=== PATIENT | male | born 1950 | race Caucasian/White ===

== ENCOUNTER → 2023-03-20 09:01 | Outpatient (REF) | payer MEDICARE, OTHER, SELFPAY | LOC: SDSPAT 09:01 | PROVIDERS: ATTENDING PHYSICIAN Surgery; FAMILY PHYSICIAN Physician Assistant Medical; OTHER PHYSICIAN Internal Medicine | DX: K60.2 Anal fissure, unspecified (principal) | CPT/HCPCS: 36415; 71046; 93005 ==

== ENCOUNTER 2023-07-04 11:13 | Emergency (ER) | payer MEDICARE, OTHER, SELFPAY ==
[2023-07-04 11:27] VITALS: BP 149/81
[2023-07-04 11:45] LABS: % Basophils 0.2 % (0-2); % Immature Granulocytes 0.4 % (0-0.5); % Lymphocytes 11.1 % (20.5-51.1); % Monocytes 9.4 % (1.7-9.3); % Neutrophils 78.9 % (42.2-75.2); Absolute Lymphocytes 0.9 10^3/uL (1.2-3.4); Absolute Monocytes 0.8 10^3/uL (0.1-0.6); Absolute Neutrophils 6.5 10^3/uL (1.4-6.5); Hematocrit 40.3 % (39.0-52.0); Hemoglobin 14.1 g/dL (13.0-18.0); Mean Corpuscular Hgb 31.3 pg (27.0-31.0); Mean Corpuscular Volume 89.4 fL (80.0-94.0); Mean Platelet Volume 9.9 fL (7.4-10.4); Nucleated Red Blood Cells % 0 % (-); Platelet Count 217 10^3/uL (130-400); Red Blood Cell Count 4.51 10^6/uL (4.70-6.10); Red Cell Dist. Width 12.5 % (11.5-14.5); White Blood Cell Count 8.2 10^3/uL (4.8-10.8)
[2023-07-04 11:59] LABS: D-Dimer 1.02 ug/mlFEU (0.00-0.50)
[2023-07-04 12:06] LABS: ALT (SGPT) 22 U/L (0-50); AST (SGOT) 27 U/L (17-59); Albumin 4.2 g/dl (3.5-5.0); Alkaline Phosphatase 74 U/L (38-126); Blood Urea Nitrogen 14 mg/dl (9-20); Carbon Dioxide 25 mmol/L (22-30); Chloride 102 mmol/L (98-107); Glucose 109 mg/dl (70-99); Potassium 3.9 mmol/L (3.5-5.1); Sodium 135 mmol/L (135-145); Total Bilirubin 0.8 mg/dl (0.2-1.3); Total Protein 6.8 g/dl (6.3-8.2); eGFR > 60.00
[2023-07-04 12:15] LABS: NT-proBNP 83.9 pg/ml; Troponin I 0.016 ng/ml
--- NOTE | 2023-07-04 14:30 | ED.GENMED ---
History of Present Illness
General
Chief Complaint: Abnormal Lab Value
Source: patient
Exam Limitations: none
Time Seen by Provider: 07/04/23 13:17
Travel History
Have you had any contact with someone who has COVID-19?: No
Do you have any symptoms of coronavirus? Fever > 100 degrees, chills, cough, shortness of breath, sore throat, loss of taste or smell, muscle aches, or headache?: No
History of Present Illness
History of Present Illness:
72-year-old male presents with months worth of stable shortness of breath with exertion. He initially saw the family doctor regarding this and was sent to pulmonology. Pulmonology did outpatient D-dimer which turned out to be elevated and was sent
here for further evaluation. At the moment at rest he has no shortness of breath. He denies chest pain. He denies a cough. He denies any significant leg swelling. No prior cardiac disease. No other complaints at this time
Past History
Past History
ED Past Medical History: HTN; Negative IDDM or NIDDM
ED Past Surgical History: Orthopedic (Left knee replacement) and Urological
Social History
Tobacco: Non-smoker
Alcohol: None
Drug: None
Personal:
Living: with family
Employment: Retired
Family History
Family History: Other (Noncontributory)
Phy Exam
Physical Exam
Physical Exam:
General: Well-appearing male no acute respiratory distress
HEENT: Normocephalic atraumatic
Heart: Regular rate and rhythm no murmurs
Lungs: Clear to auscultation bilaterally no wheezing
Abdomen: Soft nontender nondistended no guarding rebound normal bowel sounds
Extremities: Mild edema bilateral lower extremities no cyanosis
Skin: Warm no rash
Course
Orders/Labs/Results
Orders:
Orders
07/04/23 11:30
Electrocardiogram (*1) Urgent
Reason for Study: Shortness of Breath
EKG- Treatment ONCE
07/04/23 11:36
Complete Blood Count/With Diff Urgent
Comprehensive Metabolic Panel Urgent
D-Dimer Urgent
NT-proBNP Urgent
Troponin I Urgent
07/04/23 12:20
CT Chest Pe Study Urgent
Comment:
Reason For Exam: elevated d dimer
Abnormal Lab Results
07/04/23
11:36
RBC 4.51 L 10^6/uL
(4.70-6.10)
MCH 31.3 H pg
(27.0-31.0)
Absolute Lymphs (auto) 0.9 L 10^3/uL
(1.2-3.4)
Absolute Monos (auto) 0.8 H 10^3/uL
(0.1-0.6)
Neutrophils % 78.9 H %
(42.2-75.2)
Lymphocytes % 11.1 L %
(20.5-51.1)
Monocytes % 9.4 H %
(1.7-9.3)
D-Dimer 1.02 H ug/mlFEU
(0.00-0.50)
Glucose 109 H mg/dl
(70-99)
07/04/23 11:36
07/04/23 11:36
Vital Signs
Initial and Last Documented VS:
Initial Vital Signs
Temp Pulse Resp BP Pulse Ox
98.3 F 58 20 149/81 96
07/04/23 11:27 07/04/23 11:27 07/04/23 11:27 07/04/23 11:27 07/04/23 11:27
Last Documented Vital Signs
Temp Pulse Resp BP Pulse Ox
98.3 F 58 20 149/81 96
07/04/23 11:27 07/04/23 11:27 07/04/23 11:27 07/04/23 11:27 07/04/23 11:27
MDM/Problems Addressed
Differential Diagnosis Includes:
Patient sent in for shortness of breath and elevated D-dimer. D-dimer here was 1.09. Not hypoxic not tachycardic no symptoms while at rest. CT scan PE protocol was ordered through triage which I reviewed and radiologist's read. There is no
evidence of central pulmonary embolism. Troponin and BNP also within normal limits. No indication for admission to hospital symptoms have been ongoing. He has an appoint with cardiology in 3 weeks. I advised to keep this. Return precautions
were given
*Critical Care Note
Total Time (30-74mins, 75-104mins- exclusive of procedures): Not Applicable
ED Attending Note
-
Portions of this chart may have been created with voice recognition software.� Occasional wrong word or��sound alike� substitutions may have occurred due to the inherent limitations of voice recognition software.
Discharge Plan
Departure
Patient Disposition: Home (Routine Discharge)
Date of Disposition: 07/04/23
Time of Disposition: 14:32
Patient with high blood pressure during this ER visit?: No
Discharge Problem:
Dyspnea on exertion
Instructions: Shortness of Breath (Dyspnea) (DC)
Prescriptions:
No Action
lisinopril-hydrochlorothiazide 20-25 mg Tablet
1 tab PO DAILY
rosuvastatin 40 mg Tablet
40 mg PO HS
Centrum Adult 50 Plus 80 mcg Tablet,Chewable
1 tab PO HS
Referrals:
Vinicio Washington PA-C [Family Provider] -
Activity Restrictions/Additional Instructions:
Please keep your appointment with cardiology as planned. Return for worsening symptoms otherwise follow-up with specialist
[2023-07-04 15:35] VITALS: BP 137/74
== END 2023-07-04 15:15 | disposition home or self-care (01) ==
LOC: EMR 11:13
PROVIDERS: Emergency Medicine; EMERGENCY PHYSICIAN Student in an Organized Health Care Education/Training Program; FAMILY PHYSICIAN Physician Assistant Medical
DX: R06.09 Other forms of dyspnea (principal); I10 Essential (primary) hypertension; Z85.46 Personal history of malignant neoplasm of prostate
CPT/HCPCS: 99284; 71275; 80053; 83880; 84484; 85025; 85379; 93005; Q9967

== ENCOUNTER → 2023-07-25 08:14 | Outpatient (REF) | payer MEDICARE, OTHER, SELFPAY | LOC: RAD 08:14 | PROVIDERS: ATTENDING PHYSICIAN Internal Medicine Critical Care Medicine; FAMILY PHYSICIAN Physician Assistant Medical | DX: R06.09 Other forms of dyspnea (principal) | CPT/HCPCS: 93970 ==

== ENCOUNTER → 2023-08-07 12:01 | Outpatient (REF) | payer MEDICARE, OTHER, SELFPAY | LOC: DHCBC/DCA 12:01 | PROVIDERS: ATTENDING PHYSICIAN Internal Medicine Cardiovascular Disease; FAMILY PHYSICIAN Physician Assistant Medical | DX: R06.09 Other forms of dyspnea (principal) | CPT/HCPCS: 78452; 93017; A9500; J2785 ==

== ENCOUNTER → 2024-10-13 07:56 | Outpatient (REF) | payer MEDICARE, OTHER, SELFPAY | LOC: PAVMRI 07:56 | PROVIDERS: ATTENDING PHYSICIAN Orthopaedic Surgery; FAMILY PHYSICIAN Physician Assistant Medical | DX: M25.552 Pain in left hip (principal) | CPT/HCPCS: 72148; 73721 ==

== ENCOUNTER → 2024-11-26 15:44 | Outpatient (REF) | payer MEDICARE, OTHER, SELFPAY | LOC: DHSLP 15:44 | PROVIDERS: ATTENDING PHYSICIAN Internal Medicine Cardiovascular Disease; FAMILY PHYSICIAN Family Medicine Sports Medicine | DX: G47.33 Obstructive sleep apnea (adult) (pediatric) (principal) | CPT/HCPCS: 95800 ==

== ENCOUNTER → 2024-12-09 13:18 | Outpatient (REF) | payer MEDICARE, OTHER, SELFPAY | LOC: RAD 13:18 | PROVIDERS: ATTENDING PHYSICIAN Internal Medicine Hematology & Oncology; FAMILY PHYSICIAN Physician Assistant Medical | DX: C61 Malignant neoplasm of prostate (principal); C79.51 Secondary malignant neoplasm of bone; M81.0 Age-related osteoporosis without current pathological fracture | CPT/HCPCS: 77080 ==

== ENCOUNTER → 2024-12-11 08:06 | Outpatient (REF) | payer MEDICARE, OTHER, SELFPAY ==
--- NOTE | 2024-12-11 09:23 | CARDSERVLU ---
Echocardiogram with [facility] completed after protocol screening completed. Allergies verified.
Patent IV site: _Left antecubital 22 G PC site clear____
IV site flushed with 0.9% NaCl pre and post administration.
Diluted bolus method utilized to enhance visualization of ventricular steward.
Total volume given: _3___ mL
Patient tolerated all procedures well without complications.
Heplock D/C ed at 0920, site clear, no redness, no edema. Pressure held, no bleeding, 2x2 applied and taped. Pt offers no complaints.
== END ==
LOC: RCS 08:06
PROVIDERS: ATTENDING PHYSICIAN Internal Medicine Cardiovascular Disease; FAMILY PHYSICIAN Physician Assistant Medical
DX: R06.09 Other forms of dyspnea (principal)
CPT/HCPCS: 93306; Q9950